=== PATIENT | male | born 1945 | race Caucasian/White ===

== ENCOUNTER → 2022-01-13 | Outpatient (CLI) | payer MEDICARE, OTHER | LOC: COL.RAD 11:23 | DX: D29.20 Benign neoplasm of unspecified testis (principal); N49.2 Inflammatory disorders of scrotum ==

== ENCOUNTER 2022-11-25 16:59 | Inpatient (IN) | payer MEDICARE, OTHER ==
[~2022-11-25] VITALS: Ht 165.1 cm; Wt 72.1 kg
[2022-11-26 12:00] VITALS: BP 138/63; PULSE 78; TEMP 97.4
[2022-11-26] MEDS ORDERED: ASPIRIN 81M81 MG/TA2 PO (12:02)
[2022-11-26] MEDS ORDERED: VITAMIN C500 MG PO (12:02)
[2022-11-26] MEDS ORDERED: LIPITOR 40MG TA40 MG PO (12:03)
[2022-11-26] MEDS ORDERED: ZETIA 10MG TAB10 MG PO (12:04)
[2022-11-26] MEDS ORDERED: CALCIUM CITRATE1 TA7 PO (12:04)
[2022-11-26] MEDS ORDERED: PLAVIX 75MG TAB75 MG PO (12:04)
[2022-11-26] MEDS ORDERED: FERROUS SU325 MG/TAB PO (12:05)
[2022-11-26] MEDS ORDERED: LASIX 20MG TABL20 MG PO (12:05)
[2022-11-26] MEDS ORDERED: LOPRESSOR 225 MG/TAB PO (12:05)
[2022-11-26] MEDS ORDERED: FLOMAX 0.40.4 MG/CAP PO (12:06)
[2022-11-26] MEDS ORDERED: ROXICODONE 55 MG/TAB PO (12:06)
[2022-11-26] MEDS ORDERED: SENNA-S 50 MG-81 TAB PO (12:06)
[2022-11-26] MEDS ORDERED: KLOR-CON 1010 MEQ PO (12:07)
[2022-11-26 14:28] VITALS: BP 138/53; PULSE 78; TEMP 97.4
--- NOTE | 2022-11-26 14:58 | NUR ---
PATIENT TRANSFERED FROM AND ARRIVED TO [facility] APPROXIMATELY 1130. PATIENT ASSESSED, INSTRUCTED ON FALL RISK AND USE OF CALL LIGHT. SKIN ISSUES NOTATED ON ASSESSMENT. PATIENT DENIES PAIN. DIET ORDERED. PATIENT TOLERATED WITH NO ISSUES. EXPRESSIVE APHASIA NOTED WHEN PATIENT ASKED ABOUT HISTORY AND CURRENT MEDICATION REGIMEN. KAY AWARE. PATIENT IN BED, THERAPY WORKING WITH PATIENT.
--- NOTE | 2022-11-26 17:18 | NUR ---
UNABLE TO ADEQUATELY PERFORM MED RX. PATIENT UNABLE TO DETERMINE LAST DOSE.
[2022-11-26 18:01] VITALS: BP 141/56; PULSE 69; TEMP 97.3
--- NOTE | 2022-11-26 19:20 | NUR ---
RECEIVED CHANGE OF SHIFT REPORT FROM DAY SHIFT RN, PATIENT SLEEPING IN BED, EXIT ALARM ON, CALL LIGHT IN REACH.
[2022-11-26 21:00] VITALS: BP 115/52
[2022-11-27 05:11] VITALS: BP 105/64; PULSE 78; TEMP 97.6
--- NOTE | 2022-11-27 07:15 | NUR ---
CHANGE OF SHIFT REPORT GIVEN TO DAY SHIFT RNJEANIE.
--- NOTE | 2022-11-27 07:57 | NUR ---
Shift report received from tony hsu RN. Pt sitting up in the recliner. He ate 90% of his breakfast. Pt denies pain/discomfort at this time. He is answering questions readily and appropriately. Denies additional needs. Call light is in his reach. Chair alarm is on
--- NOTE | 2022-11-27 08:53 | NUR ---
Pt supervised as he completed upper and lower body dressing independently. He stood independently at the sink and completed oral hygiene (with supervision). Steady gait noted as pt ambulated back to recliner after completing oral hygiene. No assistive devices used while ambulating. Chair alarm turned on. Call light is in his reach.
--- NOTE | 2022-11-27 09:24 | NUR ---
Pt escorted off unit to Rehab gym for Group Therapy.
--- NOTE | 2022-11-27 15:47 | NUR ---
Pt resting supine in bed. HOB elevated to approx 45 degrees. Pt reports feeling tired this afternoon. Pt was up to ambulate in hallway with nurse x 2 this shift so far. He denies pain/discomfort. Denies additional needs. Call light is in his reach. Bed alarm is on.
[2022-11-27 17:08] VITALS: BP 114/51; PULSE 73; TEMP 97.2
--- NOTE | 2022-11-27 19:21 | NUR ---
RECEIVED CHANGE OF SHIFT REPORT FROM DAY SHIFT RN. UP IN CHAIR, EXIT ALARM ON, CALL LIGHT IN REACH.
[2022-11-27 20:40] VITALS: BP 136/57
[2022-11-28 03:51] VITALS: BP 117/50; PULSE 69; TEMP 97.7
--- NOTE | 2022-11-28 06:40 | NUR ---
CHANGE OF SHIFT REPORT GIVEN TO DAY SHIFT RNJEANIE. OBSERVED PATIENT SLIGHTLY SWAYING WITH STANDING THAT PATIENT REPORTED HE FELT VERY TIRED. DENIED CHEST PAIN/SOA/NAUSEA/HEADACHE AT THAT TIME. PATIENT REPORTED RESTLESS NIGHT, UP IN CHAIR FOR A BRIEF PERIOD THEN WENT BACK TO BED. BREATHING NONLABORED AND EVEN AT REST. EXIT ALARM ON WHEN IN BED OR UP IN CHAIR WITH CALL LIGHT IN REACH.
--- NOTE | 2022-11-28 06:51 | NUR ---
Shift report received from operation shift supervisor RN.
--- NOTE | 2022-11-28 09:49 | NUR ---
Pt supervised as he ambulated to the bathroom w/o assistive device. Gait steady. Pt independently performed oral hygiene at sink w/ supervision. He denies pain/discomfort. 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 Loop recorder incision left chest approximated w/ CDI steristrips. Pt supervised as he independently performed upper/lower body dressing w/out AE. [facility] He denies additional needs. Call light is in his reach. Chair alarm is on.
--- NOTE | 2022-11-28 10:10 | NUR ---
Pt up to ambulate w/ gait belt on in hallway with nurse. Gait steady.
--- NOTE | 2022-11-28 11:30 | NUR ---
SW met with patient to complete intake. Patient states that he lives in [facility]. Does not utilize DME previously, ADL's independent, and does not utilize HH at this time. Son Amol Khan [phone] or [phone]. Remainder intake questions will be addressed at a later time as patient unable to recall information due to clinical condition. SW will continue to follow.
--- NOTE | 2022-11-28 13:56 | NUR ---
Pt up to ambulate w/ gait belt in hallway w/ [employer]W MEMBER.
--- NOTE | 2022-11-28 15:55 | NUR ---
Pt up to ambulate w/ gait belt in the hallway nurse.
[2022-11-28 16:58] VITALS: BP 115/58; PULSE 76; TEMP 98.6
[2022-11-29 05:17] VITALS: BP 142/63; PULSE 77; TEMP 98.1
--- NOTE | 2022-11-29 07:03 | NUR ---
BEDSIDE REPORT DONE WITH NIGHT NURSE ROD
--- NOTE | 2022-11-29 08:58 | NUR ---
ASSESSMENT DONE ORDER. PATIENT ALERT AND ORIENTED. STILL HAVING ISSUE WITH TALKING BUT WALKING AND GETTING AROND BETTER. LUNG SOUND CLEARIN ALL LOBES. BOWEL SOUND ACTIVE IN ALL 4 QUADS.
--- NOTE | 2022-11-29 09:49 | NUR ---
Initial visit; Patient thanked [employer] for looking in on him and offering prayer and encouragement. Patient seemed to appreciate the visit. [employer] will follow up.
--- NOTE | 2022-11-29 11:06 | NUR ---
Has lack of transportation kept you from medical appts, meetings, work, or from getting things needed for daily living? NO How often do you feel lonely or isolated from those around you? NEVER Over the past 5 days, how much of the time has pain made it hard for you to sleep? NO PAIN Over the past 5 days, how often have you limited your participation in therapy due to pain? NO PAIN Over the past 5 days, how often have you limited your day-to-day activities because of pain? NO PAIN Have you had 2 or more falls in the past year or any fall with an injury? NO Did you have major surgery during the 100 days prior to admission? YES
--- NOTE | 2022-11-29 14:36 | NUR ---
Admission QIM scores were reviewed by the team. Code of 6 chosen for oral hygiene was determined by team discussion to be the most usual performance before interventions for this patient during the assessment period. Code of 4 chosen for toilet hygiene was determined by team discussion to be the most usual performance before interventions for this patient during the assessment period. Code of 4 chosen for toilet transfer was determined by team discussion to be the most usual performance before interventions for this patient during the assessment period. Code of 4 chosen for upper body dressing was determined by team discussion to be the most usual performance before interventions for this patient during the assessment period. Code of 4 chosen for lower body dressing was determined by team discussion to be the most usual performance before interventions for this patient during the assessment period. Code of 4 chosen for sit to stand was determined by team discussion to be the most usual performance for this patient during the discharge assessment period. Code of 4 chosen for chair/bed to chair transfer was determined by team discussion to be the most usual performance before interventions for this patient during the assessment period. Code of 4 chosen for walk 10 feet was determined by team discussion to be the most usual performance for this patient during the discharge assessment period.--PD Gayla
[2022-11-29 17:47] VITALS: BP 126/53; PULSE 69; TEMP 97.8
--- NOTE | 2022-11-29 18:26 | NUR ---
RECEIVED DISCHARGE INSTRUCTION ON LOOP RECORDER. GAVE IT TO DOCTOR ORDER. PATIENT SITE IS CLEAN WITH STERI STRIPS. INCISION ON CHEST IS OPEN TO AREA WITH NO REDNESS NOTED. PATIENT ABLE TO GET UP WITH OUT ANY ISSUE.
--- NOTE | 2022-11-29 20:44 | NUR ---
DURING THIS PATIENT'S ASSESSMENT AND MEDICATIONS ADMINISTRATION, THE PATIENT HAD A HARD TIME WORD FINDING. HE ALSO HAD DIFFICULTY WITH HIS BIRTHYEAR, BUT GOT HIS MONTH AND DAY CORRECT. INITIALLY HE STATED HE WAS BORN IN 1990, THEN HE SAID 1927, WHEN I ASKED HIM IF HE WAS SURE, HE SAID "MAYBE IT WAS 1941?" THIS RN TOLD HIM, "YOU'RE 77 AND THE YEAR YOU WERE BORN WAS 1944." HE SAID "OH THAT'S RIGHT." DURING HIS MEDICATION ADMINISTRATION, HE DID HAVE THIS RN CUT HIS BIGGER PILLS IN HALF, AND WITH EACH SWALLOW BURPED, WITH ONE PILL HE DID CHOKE, BUT ONCE HE LISTENED TO THE INSTRUCTION TO TAKE A SIP AND LOWER HIS CHIN TO HIS CHEST, HE WAS ABLE TO GET THE PILL SWALLOWED. THERE IS NO OTHER CONCERNS AT THIS TIME. PHYSICALLY THE PATIENT MOVES VERY WELL WITHOUT DIFFICULTY AND HAS A STEADY GAIT.
[2022-11-30 05:47] VITALS: BP 112/59; PULSE 71; TEMP 97.5
--- NOTE | 2022-11-30 06:50 | NUR ---
BEDSIDE REPORT DONE WITH NIGHT NURSE.
--- NOTE | 2022-11-30 10:37 | NUR ---
ASSESSMENT DONE ORDER. PATIENT ALERT AND ORIENTED BUT ALSO HAVE WORD PROBLMEMS. INFORM ST THAT PATIENT WAS UNABLE TO REMEMBER TO SAY BATHROOM OR URINE OR PEE. LUNG CLEAR, BOWEL ACTIVE. NO ISSUE WITH PAIN. LOOP SITE GOOD. MID STERM GOOD.
--- NOTE | 2022-11-30 11:40 | NUR ---
SW met with the patient to introduce oneself and to follow up after the weekend. The patient states that he is alright. He clarified that he lives in [place] with his , Bryson, and their two dogs. He states that his son, Amol, comes and goes and checks in on them. The patient did appear to get frustrated with his speech and having a hard time with recalling words. SW provided support.
--- NOTE | 2022-11-30 13:44 | NUR ---
The team would like to set up a patient/family meeting. RADHA contacted the patient's son, Amol, and scheduled the meeting for tomorrow, 12/01, at 1030. Amol clarifies that he lives in [place], but had planned on coming to [facility]. He plans to be here for the meeting.
[2022-11-30 17:05] VITALS: BP 116/55; PULSE 78; TEMP 98.8
--- NOTE | 2022-11-30 19:00 | NUR ---
RECEIVED CHANGE OF SHIFT REPORT FROM DAY SHIFT RN.
[2022-11-30 20:24] VITALS: BP 126/58
[2022-12-01 05:11] VITALS: BP 116/48; PULSE 4; PULSE 64; TEMP 98.5
--- NOTE | 2022-12-01 06:52 | NUR ---
BEDSIDE REPORT DONE ORDER WITH NIGHT NURSE STEVEN
--- NOTE | 2022-12-01 07:11 | NUR ---
CHANGE OF SHIFT REPORT GIVEN TO DAY SHIFT RNSARBJIT.
--- NOTE | 2022-12-01 10:40 | NUR ---
ASSESSMENT DONE ORDER. PATIENT ALERT AND ORIENTED X3 WITH SMALL MEMORY IMPAIRMENT. PATIENT UNABLE TO REMEMBER WORDS LIKE BATHROOM WHEN HE ASKING TO USE IT. THERE IS SOME QUEING ENVOLED. PATIENT ABLE TO GET UP AND WALKERWITH OUT ANY ISSUE.DOES NOT USE WALKER. PATIENT WILL BE MOD1 IN ROOM AND WILL BE DISCHARGE TUESDAY.
--- NOTE | 2022-12-01 12:08 | NUR ---
The interdisciplinary team discussed pt's Ruiz Fall Risk & Tinetti Scores during Team Conferernce. Pt is currently a low falls risk on the Ruiz Fall Risk (15) & Tinetti (27). It was deemed pt could be independent in his room starting today (12/01/22).
--- NOTE | 2022-12-01 14:37 | NUR ---
RADHA attended the patient/family meeting. The patient's son, Amol, and , Bryson, were at bedside. Also present was IPR Director, PT, OT, ST, and Dr. Pina. IPR Director started by explaining the purpose of the meeting. PT/OT/ST then discussed the patient's progress. Dr. Pina provided a medical update. The team has set a discharge date for this Tuesday and recommend cardiac rehab and outpatient ST. The patient and his family are in agreement to the plan. RADHA contacted Katia with cardiac rehab at [facility]. Katia states that she did receive orders for the patient for cardiac rehab. She states that they will contact the patient early next week to set up an appointment. Katia requests the patient's discharge summary, once available. RADHA then met with the patient and presented and reviewed the IPR Team Conference Note with him. The patient confirms that he would like to receive outpatient ST at [facility] in [place]. RADHA contacted [facility] [place] and secured the patient a ST appointment on 12/09 at 8155. RADHA notified the rn progressive care unit of the appointment. Orders will need to be faxed to [facility] at [phone].
--- NOTE | 2022-12-01 16:33 | NUR ---
PATIENT IS NOW MOD 1 IN ROOM. [facility] WILL DISCHARGE THIS TUESDAY.
[2022-12-01 17:42] VITALS: BP 108/50; PULSE 78; TEMP 98.5
--- NOTE | 2022-12-01 19:00 | NUR ---
RECEIVED CHANGE OF SHIFT REPORT FROM DAY SHIFT RN. PATIENT UP IN ROOM INDEPENDENTLY WITH NO REPORTED COMPLAINTS OR NEEDS.
[2022-12-01 21:27] VITALS: BP 104/63
[2022-12-01 21:29] VITALS: BP 112/60
[2022-12-02 05:12] VITALS: BP 101/56; PULSE 69; TEMP 97.6
--- NOTE | 2022-12-02 07:09 | NUR ---
Shift report received from manufacturing shift supervisor RN.
--- NOTE | 2022-12-02 07:11 | NUR ---
CHANGE OF SHIFT REPORT GIVEN TO DAY SHIFT RNJEANIE.
[2022-12-02 07:39] VITALS: BP 126/63; PULSE 71
--- NOTE | 2022-12-02 08:35 | NUR ---
Pt remains on Mod I status in room. Steri strips to loop recorder incision CDI. Pt denies pain or discomfort. Denies additional needs. Call light is in his reach.
--- NOTE | 2022-12-02 09:00 | NUR ---
Pt is off the unit for OT.
--- NOTE | 2022-12-02 09:40 | NUR ---
Pt back in his room after OT. He denies pain/discomfort. Remains on Mod I status in room. Denies additional needs. Call light is in his reach.
--- NOTE | 2022-12-02 13:07 | NUR ---
Pt is off the unit for PT.
--- NOTE | 2022-12-02 14:16 | NUR ---
SW met with the patient and presented and read the IM form outloud to him. The patient verbalized understanding and signed the form. SW provided him with a copy.
[2022-12-02 17:21] VITALS: BP 118/54; PULSE 76; TEMP 99.3
--- NOTE | 2022-12-02 19:08 | NUR ---
RECEIVED CHANGE OF SHIFT REPORT FROM DAY SHIFT RN.
[2022-12-02 19:52] VITALS: BP 112/45
--- NOTE | 2022-12-03 00:33 | NUR ---
PATIENT UP AD SAGE IN ROOM WITH NO REPORTED NEEDS OR COMPLAINTS. PATIENT ANTICIPATES DISCHARGE TOMORROW TO HOME. PATIENT DENIES ANY NEEDS SO FAR THIS SHIFT.
[2022-12-03 05:53] VITALS: BP 106/56; PULSE 71; TEMP 98.6
--- NOTE | 2022-12-03 06:53 | NUR ---
CHANGE OF SHIFT REPORT GIVEN TO DAY SHIFT RNJEANIE.
--- NOTE | 2022-12-03 07:06 | NUR ---
Shift report received from manager shift RN.
[2022-12-03 07:10] VITALS: BP 112/65; PULSE 75
--- NOTE | 2022-12-03 07:39 | NUR ---
Pt sitting up on bench in room. He ate 100% of breakfast. He denies pain/discomfort. Remains on Mod I status in room. Denies other needs. Call light is in his reach.
[2022-12-03] MEDS ORDERED: PLAVIX 75MG TAB75 MG PO (09:32)
[2022-12-03] MEDS ORDERED: KLOR-CON 1010 MEQ PO (09:33)
[2022-12-03] MEDS ORDERED: LASIX 20MG TABL20 MG PO (09:33)
--- NOTE | 2022-12-03 11:44 | NUR ---
Pt sitting on bench seat in room. He denies pain/discomfort. He is expecting his son to arrive around 1500 today for his discharge. Pt remains on Mod I status in his room. Denies other needs. Call light is in his reach.
--- NOTE | 2022-12-03 13:13 | NUR ---
DC Summary, Home meds, Follow up appointments reviewed with the pt and his son Amol. They had no further questions. Belongings were gathered by the pt and his son. Valuables were denied. Pt escorted off the unit by nursing staff and seatbelted for the ride home.
--- NOTE | 2022-12-03 13:21 | NUR ---
Has lack of transportation kept you from medical appts, meetings, work, or from getting things needed for daily living? NO How often do you feel lonely or isolated from those around you? NEVER Over the past 5 days, how much of the time has pain made it hard for you to sleep? OCCASIONALLY Over the past 5 days, how often have you limited your participation in therapy due to pain? RARELY/NOT AT ALL Over the past 5 days, how often have you limited your day-to-day activities because of pain? RARELY/NOT AT ALL
--- NOTE | 2022-12-03 14:00 | NUR ---
The patient discharged back home with his today, 12/03, with outpatient ST at [facility] and Cardiac Rehab at [facility]. SW faxed orders to [facility] and the discharge summary to [facility]. No additional needs at this time.
== END 2022-12-03 13:05 | disposition home or self-care (01) | DRG 57 ==
PROVIDERS: ADMIT Physical Medicine & Rehabilitation Sports Medicine
DX: I69.320 Aphasia following cerebral infarction (principal); I10 Essential (primary) hypertension; I25.10 Atherosclerotic heart disease of native coronary artery without angina pectoris; E78.5 Hyperlipidemia, unspecified; N40.0 Benign prostatic hyperplasia without lower urinary tract symptoms; R26.89 Other abnormalities of gait and mobility; D64.9 Anemia, unspecified; I69.318 Other symptoms and signs involving cognitive functions following cerebral infarction; Z95.1 Presence of aortocoronary bypass graft; Z73.6 Limitation of activities due to disability; Z95.818 Presence of other cardiac implants and grafts; Z79.82 Long term (current) use of aspirin; Z79.891 Long term (current) use of opiate analgesic; Z79.899 Other long term (current) drug therapy
CPT/HCPCS: A9284